=== PATIENT | male | born 1950 | race Caucasian/White ===

== ENCOUNTER → 2016-12-24 | Outpatient (CLI) | payer MEDICARE, OTHER ==
--- NOTE | 2016-12-24 14:14 | MR ---
EXAMINATION TYPE: MR angio head wo con DATE OF EXAM: 12/24/2016 2:07 PM COMPARISON: NONE HISTORY: CVA, follow up TECHNIQUE: Time of flight images focusing on the [place] were performed without contrast. FINDINGS: The right vertebral artery is not visualized. There is a origin to the right posterior cerebral artery. The left posterior communicating flavio ry is not visualized with certainty. Both ophthalmic arteries are visualized. There is no sizable ane urysm. IMPRESSION: 1. Failure to visualize the right vertebral artery. 2. Normal variant anatomy with a origin of the right posterior cerebral artery.
--- NOTE | 2017-01-01 09:27 | MR ---
"EXAMINATION TYPE: MR brain wo con DATE OF EXAM: 12/24/2016 COMPARISON: Outside MRI and CT brain July 24, 2016. HISTORY: CVA, follow up TECHNIQUE: Multiplanar, multisequence imaging of the brain and brainstem is performed without IV cont rast. FINDINGS: Diffusion weighted images demonstrate no evidence of a recent infarct or other diffusion abnormality. There is no extraaxial fluid collection or significant white matter signal abnormality. The ventricu lar system and cisternal spaces are normal in size and appearance. The brain volume is age appropria te. There is encephalomalacia with old blood product involving high posterior left frontal lobe. Curr ent exam is suboptimal as dedicated trauma protocol with T2 Star weighted imaging is not performed. A dditional foci of intraparenchymal blood product right parietal level on axial image 19 and right int ernal capsule level on axial image 18 are redemonstrated. There is new blooming artifact involving th e left lateral ventricle with temporal horn extension seen best on axial images 13 through 15 consist ent with more subacute blood product at this level as there is subtle T1 hyperintensity and T2 hyperi ntensity present. Midline structures demonstrate normal morphology. The craniocervical junction appears within normal limits. Normal vascular flow voids are present. Dominant left vertebral artery is noted. The visualiz ed sinuses are clear and the globes are intact. Deviated nasal septum to the left is redemonstrated. IMPRESSION: Redemonstration of multifocal hemosiderin deposition or old blood product with largest fo rajesh area consistent with hemorrhagic infarct or encephalomalacia high left frontal region redemonstra kate. There is suggestion of new or subacute left-sided intraventricular hemorrhage as detailed above new from prior study. Etiology uncertain. A Yellow message has been communicated to Bryan Gibson via the [employer] | Critical Result sy stem on 01/01/2017 9:24 AM, Message ID [id number]."
== END ==
LOC: RADMRIMAIN 13:38
PROVIDERS: ATTEND Nurse Practitioner Acute Care
DX: I63.9 Cerebral infarction, unspecified (principal)
CPT/HCPCS: 70544; 70551

== ENCOUNTER 2018-01-07 09:31 | Day surgery (SDC) | payer MEDICARE, OTHER ==
[2018-01-04 11:20] VITALS: BMI 32.3
[~2018-01-07 09:31] MED LIST: LACTATED RINGERS 1,000 ML IV SCH
[2018-01-07 10:03] VITALS: RESP 16; TEMP 97.6
[2018-01-07] MEDS ORDERED: PROPOFOL 10 MG/ML 20 ML VIAL IV ONE (10:56)
--- NOTE | 2018-01-07 11:18 | P.PCN ---
Date of Procedure: 01/07/18 Procedure(s) Performed: tBRIEF HISTORY: Patient is a 67-year-old, pleasant, white male, with history of chronic cirrhosis scheduled for an upper endoscopy as a part of screening for esophageal varices. PROCEDURE PERFORMED: Esophagogastroduodenoscopy with the biopsy. PREOPERATIVE DIAGNOSIS: Cirrhosis/screening for esophageal varices. IV sedation per anesthesia. PROCEDURE: After informed consent was obtained, the patient was brought into the endoscopy unit. IV sedation was administered by Anesthesia under continuous monitoring. Initially the Olympus GIF-140 video endoscope was inserted into the mouth. Esophagus intubated without any difficulty. It was gradually advanced into the stomach and duodenum and carefully examined. The bulb and the second part of the duodenum appeared normal. The scope at this time was withdrawn to the stomach, adequately insufflated with air, and upon careful examination, mucosa of the antrum, body, cardia and the fundus had severe gastritis and changes consistent with: Hypertensive gastropathy. Biopsies were done from this area. The scope was then withdrawn into the esophagus. The GE junction was located at 39 cm from the incisors. The esophagus appeared normal. There were no erosions or ulcerations seen , there was a large distal esophageal varices seen and the patient tolerated the procedure well. IMPRESSION: 1. Large distal esophageal varices with no active bleeding. 2.. Severe antral Gastritis and portal hypertensive gastropathy. RECOMMENDATIONS: The findings of this examination were discussed with the patient as well as his family. He will be started on Inderal 10 mg 3 times daily. He'll be seen in the office in 2 months.
[2018-01-07 11:35] VITALS: BP 151/79; PULSE 72
== END 2018-01-07 11:46 | disposition home or self-care (01) ==
LOC: ORWHC2ENDO 09:31
PROVIDERS: ATTEND Internal Medicine Gastroenterology
DX: K29.50 Unspecified chronic gastritis without bleeding (principal); I85.00 Esophageal varices without bleeding; K76.6 Portal hypertension; K31.89 Other diseases of stomach and duodenum; K74.60 Unspecified cirrhosis of liver; F17.290 Nicotine dependence, other tobacco product, uncomplicated; Z86.73 Personal history of transient ischemic attack (TIA), and cerebral infarction without residual deficits
CPT/HCPCS: 88305; 43239; J2704

== ENCOUNTER 2018-03-07 08:43 | Day surgery (SDC) | payer MEDICARE, OTHER ==
[2018-03-07 09:32] LABS: Mean Platelet Volume 9.3; Platelet Count 104 k/uL (150-450)
[2018-03-07 09:37] VITALS: TEMP 97.9
[2018-03-07 09:40] LABS: INR 1.3 (<1.2); Prothrombin Time 12.3 sec (9.0-12.0)
[2018-03-07] MEDS: ALBUMIN HUMAN 25% 50 ML in EMPTY BAG 1 BAG IVPB SCH ×3 (10:57→12:14)
[2018-03-07 12:16] VITALS: RESP 16
[2018-03-07 12:17] VITALS: BP 130/70; PULSE 75
--- NOTE | 2018-03-07 12:35 | US ---
Therapeutic paracentesis. DATE OF EXAM: 03/07/2018 CLINICAL HISTORY: Ascites The procedure was discussed with the patient. The risks, complications, benefits, and alternatives we re discussed and any questions were answered. Informed consent was obtained. The patient was placed s upine on the ultrasound table and prepped and draped in the usual sterile fashion. All elements of maximal barrier technique were utilized. Under ultrasound guidance, access into the right lower quadrant was obtained, via the paracentesis catheter system and direct ultrasound guidanc e. Approximately 5.2 liters of straw-colored fluid was removed. The patient was stable throughout the pr ocedure and remained stable upon discharge from Department of Radiology. IMPRESSION: Successful therapeutic paracentesis under ultrasound guidance.
== END 2018-03-07 11:30 | disposition home or self-care (01) ==
LOC: RADPROMAIN 08:43
PROVIDERS: ATTEND Internal Medicine Gastroenterology
DX: R18.8 Other ascites (principal)
CPT/HCPCS: 88108; 88305; 82565; 85049; 85610; 36415; 49083; P9047

== ENCOUNTER 2018-04-09 11:32 | Inpatient (IN) | payer MEDICARE, OTHER ==
--- NOTE | 2018-04-09 12:14 | ED ---
General Adult HPI - General Chief complaint: Weakness Stated complaint: Yellowing of eyes and skin Time Seen by Provider: 04/09/18 11:53 Source: patient, family, RN notes reviewed Mode of arrival: ambulatory Limitations: no limitations - History of Present Illness Initial comments: Patient is a pleasant 68-year-old male presenting to the emergency Department with general weakness. Onset of symptoms was several days ago. Symptoms have progressively worsened. Patient has noticed swelling of his abdomen. Patient does have known liver disease and has had some increased jaundice. Patient is fatigued. No isolated area of weakness. No confusion. - Related Data Home Medications Medication Instructions Recorded Confirmed Furosemide [Lasix] 40 mg PO DAILY 03/04/18 04/09/18 Spironolactone 100 mg PO DAILY 04/09/18 04/09/18 Allergies Allergy/AdvReac Type Severity Reaction Status Date / Time antibiotic AdvReac Rash/Hives Uncoded 04/09/18 11:43 Review of Systems ROS Statement: Those systems with pertinent positive or pertinent negative responses have been documented in the HPI. ROS Other: All systems not noted in ROS Statement are negative. Constitutional: Denies: fever Eyes: Denies: eye pain, vision change ENT: Denies: ear pain Respiratory: Denies: cough Cardiovascular: Denies: chest pain Endocrine: Reports: fatigue Gastrointestinal: Denies: vomiting Genitourinary: Denies: dysuria Musculoskeletal: Denies: back pain Skin: Reports: other (Jaundice discoloration) Neurological: Denies: confusion Past Medical History Past Medical History: Liver Disease Additional Past Medical History / Comment(s): bleed in brain in 2016 affecting right side recovered well after rehab, Cirrosis of liver (non alcoholic) History of Any Multi-Drug Resistant Organisms: C-DIFF Date of last positivie culture/infection: 2014 MDRO Source:: Colon Past Surgical History: No Surgical Hx Reported Additional Past Surgical History / Comment(s): Colonoscopy Past Anesthesia/Blood Transfusion Reactions: No Reported Reaction Past Psychological History: No Psychological Hx Reported Smoking Status: Current some day smoker Past Alcohol Use History: None Reported Past Drug Use History: None Reported - Past Family History Mother Family Medical History: Unable to Obtain Additional Family Medical History / Comment(s): Adopted General Exam Limitations: no limitations General appearance: alert, in no apparent distress Head exam: Present: atraumatic Eye exam: Present: scleral icterus ENT exam: Present: normal oropharynx Neck exam: Present: normal inspection Respiratory exam: Present: normal lung sounds bilaterally Cardiovascular Exam: Present: regular rate, normal rhythm GI/Abdominal exam: Present: distended, organomegaly (Hepatomegaly) Extremities exam: Present: pedal edema. Absent: calf tenderness Neurological exam: Present: alert Psychiatric exam: Present: normal affect, normal mood Skin exam: Present: other (Jaundiced appearance) Course Vital Signs 04/09/18 04/09/18 11:38 13:34 Temperature 98.1 F Pulse Rate 96 95 Respiratory 18 18 Rate Blood Pressure 124/70 130/77 O2 Sat by Pulse 96 96 Oximetry EKG Findings - EKG Comments: EKG Findings:: Normal sinus rhythm 96. IL 148. QRS 90. QT 370. QTc 467. Left axis. Normal QRS. No acute ST change. Medical Decision Making - Medical Decision Making Patient reevaluated. Patient and family updated. Case was discussed in detail with Dr. Schmidt, covering for Dr. whiatker, who will admit for Dr. Rowan. Gastroesophageal neurology will be consulted. Patient was previously seen Dr. Simpson. - Lab Data Result diagrams: 04/09/18 12:12 04/09/18 12:12 Lab Results 04/09/18 04/09/18 04/09/18 Range/Units 12:12 12:12 12:12 WBC 6.9 (3.8-10.6) k/uL RBC 4.36 (4.30-5.90) m/uL Hgb 14.2 (13.0-17.5) gm/dL Hct 44.6 (39.0-53.0) % MCV 102.3 H (80.0-100.0) fL MCH 32.5 (25.0-35.0) pg MCHC 31.8 (31.0-37.0) g/dL RDW 17.0 H (11.5-15.5) % Plt Count 110 L (150-450) k/uL Neutrophils % 76 % Lymphocytes % 13 % Monocytes % 7 % Eosinophils % 1 % Basophils % 0 % Neutrophils # 5.3 (1.3-7.7) k/uL Lymphocytes # 0.9 L (1.0-4.8) k/uL Monocytes # 0.5 (0-1.0) k/uL Eosinophils # 0.1 (0-0.7) k/uL Basophils # 0.0 (0-0.2) k/uL Anisocytosis Slight Macrocytosis Moderate PT (9.0-12.0) sec INR (<1.2) APTT (22.0-30.0) sec Sodium 133 L (137-145) mmol/L Potassium 5.6 H (3.5-5.1) mmol/L Chloride 98 (98-107) mmol/L Carbon Dioxide 25 (22-30) mmol/L Anion Gap 10 mmol/L BUN 29 H (9-20) mg/dL Creatinine 0.92 (0.66-1.25) mg/dL Est GFR (CKD-EPI)AfAm >90 (>60 ml/min/1.73 sqM) Est GFR (CKD-EPI)NonAf 86 (>60 ml/min/1.73 sqM) Glucose 142 H (74-99) mg/dL Plasma Lactic Acid [place] (0.7-2.0) mmol/L Calcium 8.8 (8.4-10.2) mg/dL Phosphorus 3.6 (2.5-4.5) mg/dL Total Bilirubin 13.2 H (0.2-1.3) mg/dL AST 178 H (17-59) U/L ALT 61 (21-72) U/L Alkaline Phosphatase 322 H (38-126) U/L Ammonia (<30) umol/L Total Creatine Kinase 37 L (55-170) U/L CK-MB (CK-2) 0.7 (0.0-2.4) ng/mL CK-MB (CK-2) Rel Index 1.9 Troponin I <0.012 (0.000-0.034) ng/mL NT-Pro-B Natriuret Pep pg/mL Total Protein 7.8 (6.3-8.2) g/dL Albumin 2.8 L (3.5-5.0) g/dL TSH 2.590 (0.465-4.680) mIU/L Urine Color Urine Appearance (Clear) Urine pH (5.0-8.0) Ur Specific [place] (1.001-1.035) Urine Protein (Negative) Urine Glucose (UA) (Negative) Urine Ketones (Negative) Urine Blood (Negative) Urine Nitrite (Negative) Urine Bilirubin (Negative) Urine Urobilinogen (<2.0) mg/dL Ur Leukocyte Esterase (Negative) 04/09/18 04/09/18 04/09/18 Range/Units 12:12 12:12 12:12 WBC (3.8-10.6) k/uL RBC (4.30-5.90) m/uL Hgb (13.0-17.5) gm/dL Hct (39.0-53.0) % MCV (80.0-100.0) fL MCH (25.0-35.0) pg MCHC (31.0-37.0) g/dL RDW (11.5-15.5) % Plt Count (150-450) k/uL Neutrophils % % Lymphocytes % % Monocytes % % Eosinophils % % Basophils % % Neutrophils # (1.3-7.7) k/uL Lymphocytes # (1.0-4.8) k/uL Monocytes # (0-1.0) k/uL Eosinophils # (0-0.7) k/uL Basophils # (0-0.2) k/uL Anisocytosis Macrocytosis PT 15.1 H (9.0-12.0) sec INR 1.6 H (<1.2) APTT 29.2 (22.0-30.0) sec Sodium (137-145) mmol/L Potassium (3.5-5.1) mmol/L Chloride (98-107) mmol/L Carbon Dioxide (22-30) mmol/L Anion Gap mmol/L BUN (9-20) mg/dL Creatinine (0.66-1.25) mg/dL Est GFR (CKD-EPI)AfAm (>60 ml/min/1.73 sqM) Est GFR (CKD-EPI)NonAf (>60 ml/min/1.73 sqM) Glucose (74-99) mg/dL Plasma Lactic Acid [place] 2.8 H* (0.7-2.0) mmol/L Calcium (8.4-10.2) mg/dL Phosphorus (2.5-4.5) mg/dL Total Bilirubin (0.2-1.3) mg/dL AST (17-59) U/L ALT (21-72) U/L Alkaline Phosphatase (38-126) U/L Ammonia 28 (<30) umol/L Total Creatine Kinase (55-170) U/L CK-MB (CK-2) (0.0-2.4) ng/mL CK-MB (CK-2) Rel Index Troponin I (0.000-0.034) ng/mL NT-Pro-B Natriuret Pep 429 pg/mL Total Protein (6.3-8.2) g/dL Albumin (3.5-5.0) g/dL TSH (0.465-4.680) mIU/L Urine Color Urine Appearance (Clear) Urine pH (5.0-8.0) Ur Specific [place] (1.001-1.035) Urine Protein (Negative) Urine Glucose (UA) (Negative) Urine Ketones (Negative) Urine Blood (Negative) Urine Nitrite (Negative) Urine Bilirubin (Negative) Urine Urobilinogen (<2.0) mg/dL Ur Leukocyte Esterase (Negative) 04/09/18 Range/Units 13:20 WBC (3.8-10.6) k/uL RBC (4.30-5.90) m/uL Hgb (13.0-17.5) gm/dL Hct (39.0-53.0) % MCV (80.0-100.0) fL MCH (25.0-35.0) pg MCHC (31.0-37.0) g/dL RDW (11.5-15.5) % Plt Count (150-450) k/uL Neutrophils % % Lymphocytes % % Monocytes % % Eosinophils % % Basophils % % Neutrophils # (1.3-7.7) k/uL Lymphocytes # (1.0-4.8) k/uL Monocytes # (0-1.0) k/uL Eosinophils # (0-0.7) k/uL Basophils # (0-0.2) k/uL Anisocytosis Macrocytosis PT (9.0-12.0) sec INR (<1.2) APTT (22.0-30.0) sec Sodium (137-145) mmol/L Potassium (3.5-5.1) mmol/L Chloride (98-107) mmol/L Carbon Dioxide (22-30) mmol/L Anion Gap mmol/L BUN (9-20) mg/dL Creatinine (0.66-1.25) mg/dL Est GFR (CKD-EPI)AfAm (>60 ml/min/1.73 sqM) Est GFR (CKD-EPI)NonAf (>60 ml/min/1.73 sqM) Glucose (74-99) mg/dL Plasma Lactic Acid [place] (0.7-2.0) mmol/L Calcium (8.4-10.2) mg/dL Phosphorus (2.5-4.5) mg/dL Total Bilirubin (0.2-1.3) mg/dL AST (17-59) U/L ALT (21-72) U/L Alkaline Phosphatase (38-126) U/L Ammonia (<30) umol/L Total Creatine Kinase (55-170) U/L CK-MB (CK-2) (0.0-2.4) ng/mL CK-MB (CK-2) Rel Index Troponin I (0.000-0.034) ng/mL NT-Pro-B Natriuret Pep pg/mL Total Protein (6.3-8.2) g/dL Albumin (3.5-5.0) g/dL TSH (0.465-4.680) mIU/L Urine Color Dark Yellow Urine Appearance Clear (Clear) Urine pH 5.5 (5.0-8.0) Ur Specific [place] 1.007 (1.001-1.035) Urine Protein Negative (Negative) Urine Glucose (UA) Negative (Negative) Urine Ketones Negative (Negative) Urine Blood Negative (Negative) Urine Nitrite Negative (Negative) Urine Bilirubin 1+ H (Negative) Urine Urobilinogen <2.0 (<2.0) mg/dL Ur Leukocyte Esterase Negative (Negative) - Radiology Data Radiology results: image reviewed (Chest x-ray shows no acute process) Disposition Clinical Impression: Liver failure, Ascites Disposition: ADMITTED IP TO THIS HOSP Is patient prescribed a controlled substance at d/c from ED?: No Referrals: Travon Rowan MD [Primary Care Provider] - 1-2 days Decision Time: 15:04
[2018-04-09 12:26] LABS: Anisocytosis Slight; Basophils % (A) 0 %; Eosinophils # (A) 0.1 k/uL (0-0.7); Eosinophils % (A) 1 %; HCT 44.6 % (39.0-53.0); HGB 14.2 gm/dL (13.0-17.5); Lymphocytes # (A) 0.9 k/uL (1.0-4.8); Lymphocytes % (A) 13 %; MCH 32.5 pg (25.0-35.0); MCHC 31.8 g/dL (31.0-37.0); MCV 102.3 fL (80.0-100.0); Macrocytosis Moderate; Mean Platelet Volume 8.4; Monocytes # (A) 0.5 k/uL (0-1.0); Monocytes % (A) 7 %; Neutrophils # (A) 5.3 k/uL (1.3-7.7); Neutrophils % (A) 76 %; Platelet Count 110 k/uL (150-450); RBC 4.36 m/uL (4.30-5.90); WBC 6.9 k/uL (3.8-10.6)
[2018-04-09 12:36] LABS: ALT 61 U/L (21-72); AST 178 U/L (17-59); Albumin 2.8 g/dL (3.5-5.0); Alkaline Phosphatase 322 U/L (38-126); Anion Gap 10 mmol/L; Blood Urea Nitrogen 29 mg/dL (9-20); Calcium 8.8 mg/dL (8.4-10.2); Carbon Dioxide 25 mmol/L (22-30); Chloride 98 mmol/L (98-107); Glucose 142 mg/dL (74-99); INR 1.6 (<1.2); Lactic Acid, Venous 2.8 mmol/L (0.7-2.0); Partial Thromboplastin Time 29.2 sec (22.0-30.0); Phosphorus 3.6 mg/dL (2.5-4.5); Potassium 5.6 mmol/L (3.5-5.1); Prothrombin Time 15.1 sec (9.0-12.0); Sodium 133 mmol/L (137-145); Total Bilirubin 13.2 mg/dL (0.2-1.3); Total Protein 7.8 g/dL (6.3-8.2)
--- NOTE | 2018-04-09 12:38 | XR ---
EXAMINATION TYPE: XR chest 2V DATE OF EXAM: 04/09/2018 HISTORY: Weakness. REFERENCE: NONE. FINDINGS: There is apparent elevation of the right hemidiaphragm. There is some thickening of the min or fissure on the right. The lungs are clear. Pleural spaces appear clear. The heart is not enlarged. IMPRESSION: NO ACUTE INTRATHORACIC ABNORMALITY.
[2018-04-09 13:03] LABS: Creatine Kinase 37 U/L (55-170)
[2018-04-09 13:14] LABS: Creatine Kinase MB 0.7 ng/mL (0.0-2.4); Troponin I <0.012 ng/mL (0.000-0.034)
[2018-04-09 13:37] LABS: Appearance,Urine Clear (Clear); Bilirubin,Urine 1+ (Negative); Blood,Urine Negative (Negative); Color,Urine Dark Yellow; Glucose,Urine (UA) Negative (Negative); Ketones,Urine Negative (Negative); Leukocyte Esterase,Urine Negative (Negative); Nitrite,Urine Negative (Negative); PH, Urine 5.5 (5.0-8.0); Protein,Urine Negative (Negative); Specific Gravity,Urine 1.007 (1.001-1.035); Urobilinogen,Urine <2.0 mg/dL (<2.0)
[2018-04-09] MEDS ORDERED: NALOXONE 0.4 MG/ML 1 ML VIAL IV PRN (15:04)
[2018-04-09] MEDS: SODIUM CHLORIDE 0.9% 1,000 ML IV SCH (15:29)
--- NOTE | 2018-04-09 16:33 | P.HPIM ---
History of Present Illness 68-year-old the male came in with generalized weakness as well as discoloration of the skin. Patient the found to have obstructive jaundice. Patient does have history of cirrhosis was extensively evaluated as an outpatient. I do not have any significant labs available. Patient is unsure whether hepatitis panel was obtained patient the etiology of cirrhosis unknown patient does not appear to be sick alcoholic. The did drink alcohol in the past occasionally never an alcoholic. Patient was told that a nonalcoholic stridor hepatitis like to cirrhosis. Patient's ammonia level essentially within normal limits bilirubin is 13 with yellowish discoloration of the skin patient denied any itching. Patient had elevated lactic acid secondary to cirrhosis. Patient's potassium is elevated secondary to aldactone. Patient denied any abdominal pain nausea vomiting diarrhea. Review of Systems REVIEW OF SYSTEMS: CONSTITUTIONAL: No fever, no malaise, no fatigue. HEENT: No recent visual problems or hearing problems. Denied any sore throat. CARDIOVASCULAR: No chest pain, orthopnea, PND, no palpitations, no syncope. PULMONARY: No shortness of breath, no cough, no hemoptysis. GASTROINTESTINAL: As mentioned in HPI NEUROLOGICAL: No headaches, no weakness, no numbness. HEMATOLOGICAL: Denies any bleeding or petechiae. GENITOURINARY: Denies any burning micturition, frequency, or urgency. MUSCULOSKELETAL/RHEUMATOLOGICAL: Denies any joint pain, swelling, or any muscle pain. ENDOCRINE: Denies any polyuria or polydipsia. The rest of the 14-point review of systems is negative. Past Medical History Past Medical History: Liver Disease Additional Past Medical History / Comment(s): bleed in brain in 2016 affecting right side recovered well after rehab, Cirrosis of liver (non alcoholic) History of Any Multi-Drug Resistant Organisms: C-DIFF Date of last positivie culture/infection: 2014 MDRO Source:: Colon Past Surgical History: No Surgical Hx Reported Additional Past Surgical History / Comment(s): Colonoscopy Past Anesthesia/Blood Transfusion Reactions: No Reported Reaction Past Psychological History: No Psychological Hx Reported Smoking Status: Current some day smoker Past Alcohol Use History: None Reported Past Drug Use History: None Reported - Past Family History Mother Family Medical History: Unable to Obtain Additional Family Medical History / Comment(s): Adopted Medications and Allergies Home Medications Medication Instructions Recorded Confirmed Type Furosemide [Lasix] 40 mg PO DAILY 03/04/18 04/09/18 History Spironolactone 100 mg PO DAILY 04/09/18 04/09/18 History Allergies Allergy/AdvReac Type Severity Reaction Status Date / Time antibiotic AdvReac Rash/Hives Uncoded 04/09/18 11:43 Physical Exam Vitals: Vital Signs Temp Pulse Resp BP Pulse Ox 04/09/18 15:31 93 18 118/73 95 04/09/18 13:34 95 18 130/77 96 04/09/18 11:38 98.1 F 96 18 124/70 96 Intake and Output 04/09/18 04/09/18 04/09/18 06:59 14:59 22:59 Other: Weight 83.007 kg PHYSICAL EXAMINATION: GENERAL: The patient is alert and oriented x3, not in any acute distress. Well developed, well nourished. On looking HEENT: Pupils are round and equally reacting to light. EOMI. she does have scleral icterus. No conjunctival pallor. Normocephalic, atraumatic. No pharyngeal erythema. No thyromegaly. CARDIOVASCULAR: S1 and S2 present. No murmurs, rubs, or gallops. PULMONARY: Chest is clear to auscultation, no wheezing or crackles. ABDOMEN: Abdominal is distended with ascites shifting dullness no fluid thrill. MUSCULOSKELETAL: No joint swelling or deformity. EXTREMITIES: No cyanosis, clubbing, or pedal edema. NEUROLOGICAL: Gross neurological examination did not reveal any focal deficits. SKIN: No rashes. Results CBC & Chem 7: 04/09/18 12:12 04/09/18 12:12 Labs: Abnormal Lab Results - Last 24 Hours (Table) 04/09/18 04/09/18 04/09/18 Range/Units 12:12 12:12 12:12 MCV 102.3 H (80.0-100.0) fL RDW 17.0 H (11.5-15.5) % Plt Count 110 L (150-450) k/uL Lymphocytes # 0.9 L (1.0-4.8) k/uL PT (9.0-12.0) sec INR (<1.2) Sodium 133 L (137-145) mmol/L Potassium 5.6 H (3.5-5.1) mmol/L BUN 29 H (9-20) mg/dL Glucose 142 H (74-99) mg/dL Plasma Lactic Acid [place] (0.7-2.0) mmol/L Total Bilirubin 13.2 H (0.2-1.3) mg/dL AST 178 H (17-59) U/L Alkaline Phosphatase 322 H (38-126) U/L Total Creatine Kinase 37 L (55-170) U/L Albumin 2.8 L (3.5-5.0) g/dL Urine Bilirubin (Negative) 04/09/18 04/09/18 04/09/18 Range/Units 12:12 12:12 13:20 MCV (80.0-100.0) fL RDW (11.5-15.5) % Plt Count (150-450) k/uL Lymphocytes # (1.0-4.8) k/uL PT 15.1 H (9.0-12.0) sec INR 1.6 H (<1.2) Sodium (137-145) mmol/L Potassium (3.5-5.1) mmol/L BUN (9-20) mg/dL Glucose (74-99) mg/dL Plasma Lactic Acid [place] 2.8 H* (0.7-2.0) mmol/L Total Bilirubin (0.2-1.3) mg/dL AST (17-59) U/L Alkaline Phosphatase (38-126) U/L Total Creatine Kinase (55-170) U/L Albumin (3.5-5.0) g/dL Urine Bilirubin 1+ H (Negative) 04/09/18 Range/Units 15:56 MCV (80.0-100.0) fL RDW (11.5-15.5) % Plt Count (150-450) k/uL Lymphocytes # (1.0-4.8) k/uL PT (9.0-12.0) sec INR (<1.2) Sodium (137-145) mmol/L Potassium (3.5-5.1) mmol/L BUN (9-20) mg/dL Glucose (74-99) mg/dL Plasma Lactic Acid [place] 2.9 H* (0.7-2.0) mmol/L Total Bilirubin (0.2-1.3) mg/dL AST (17-59) U/L Alkaline Phosphatase (38-126) U/L Total Creatine Kinase (55-170) U/L Albumin (3.5-5.0) g/dL Urine Bilirubin (Negative) Assessment and Plan Plan: -Abdominal distention: Secondary to cirrhosis ascites, patient will be started on IV Lasix in spite of lactic acidosis which is secondary to cirrhosis we'll repeat lactic acid tomorrow hold off aldactone -Lactic acidosis secondary to liver failure -Direct hyperbilirubinemia: Secondary to cirrhosis will use ursodeoxycholic acid. -Cirrhosis etiology is unknown probability of nonalcoholic steato- hepatitis with some acute hepatitis -Hyperkalemia secondary to potassium sparing diuretic which is being held -Hyponatremia hypervolemic hyponatremia expected to improve with Lasix -Elevated MCV secondary to liver disease.
[2018-04-09] MEDS: URSODIOL 300 MG CAP PO SCH (17:57)
[2018-04-09] MEDS: FUROSEMIDE 10 MG/ML 4 ML VIAL IV SCH (17:57)
--- NOTE | 2018-04-09 20:29 | P.CONS ---
History of Present Illness - Reason for Consult Consult date: 04/09/18 Ascites, elevated bilirubin Requesting physician: Uri Schmidt - Chief Complaint Weakness, abdominal distention - History of Present Illness The patient is a 68-year-old male with a known history of decompensated cirrhosis who presented to the hospital with complaints of weakness, increased abdominal distention and jaundice. Per the patient's he was diagnosed with cirrhosis in 2014. 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 Initially the patient was on diuretic therapy as needed for a ascites however he was started on daily Lasix 40 mg and Aldactone 100 mg earlier in the year. He he has required paracentesis 1 time in the past. He reports compliance with a 1500 mg sodium diet. He denies any excessive alcohol abuse. He denies any fevers chills or confusion. He is not on any medications for encephalopathy and denies any signs or symptoms of encephalopathy. He had an EGD on 01/07/18 which was significant for gastritis however per the patient no varices were noted at that time. He denies any recent medication changes, sick contacts, GI bleeding or other illness. He reports that earlier in the week when he was seen by his daughter there was no evidence of yellowing of his skin at that time. Currently he is lying in bed attenuating to report abdominal discomfort from the distention but no actual pain in his abdomen or tenderness to palpation. Review of Systems REVIEW OF SYSTEMS: CARDIOPULMONARY: Denies chest pain but does note minimal shortness of breath. GENITOURINARY: No dysuria or hematuria however does note some darkening of his urine. MUSCULOSKELETAL: The patient has felt weak and fatigued SKIN: Denies any new rashes or lesions or pallor, however jaundice of his skin has been noted. PSYCHIATRIC: Denies any depression or anxiety. NEUROLOGY: Denies headache, denies any new focal deficits. EARS: No tinnitus, discharge or new hearing loss. NOSE: No discharge or congestion. EYES: No pain in eyes or change in vision. CONSTITUTIONAL: No recent weight loss. No fever, chills, night sweats. 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; C-Diff x1 2015, multiple kidney stones; low platelets History of Any Multi-Drug Resistant Organisms: C-DIFF Year Discovered:: 2014 MDRO Source:: Colon Past Surgical History: No Surgical Hx Reported Additional Past Surgical History / Comment(s): Colonoscopy; paracentesis x1 February 2018; ERCP; 2017 platelet transfusion Past Anesthesia/Blood Transfusion Reactions: No Reported Reaction Past Psychological History: No Psychological Hx Reported Smoking Status: Current every day smoker Past Alcohol Use History: None Reported Additional Past Alcohol Use History / Comment(s): smokes 2 cigars a day for about 15-20 years. Has not drank alcohol since beginning of February 2018, occasional alcohol prior to that. Past Drug Use History: None Reported - Past Family History Mother Family Medical History: Unable to Obtain Additional Family Medical History / Comment(s): Adopted. Medications and Allergies Home Medications Medication Instructions Recorded Confirmed Type Furosemide [Lasix] 40 mg PO DAILY 03/04/18 04/09/18 History Spironolactone 100 mg PO DAILY 04/09/18 04/09/18 History Allergies Allergy/AdvReac Type Severity Reaction Status Date / Time antibiotic AdvReac Rash/Hives Uncoded 04/09/18 11:43 Physical Exam Vitals: Vital Signs Temp Pulse Resp BP Pulse Ox 04/09/18 16:33 98 F 93 18 147/81 96 04/09/18 15:31 93 18 118/73 95 04/09/18 13:34 95 18 130/77 96 04/09/18 11:38 98.1 F 96 18 124/70 96 Intake and Output 04/09/18 04/09/18 04/09/18 06:59 14:59 22:59 Other: Weight 83.007 kg 84.5 kg On physical examination, patient appears comfortable in no apparent distress. HEAD: Normocephalic, atraumatic. EYES: Positive for scleral icterus. No conjunctival injection. MOUTH: No lesions, tongue midline. NECK: Trachea midline, no gross abnormalities. CHEST: Clear to auscultation with no wheezing or rhonchi appreciated. HEART: Regular rate and rhythm. ABDOMEN: Soft, distended with positive fluid wave. Bowel sounds are positive. No organomegaly. No guarding or rigidity. EXTREMITIES: Minimal bilateral pedal edema. SKIN: No rashes, severe for jaundice. NEUROLOGIC: Alert and oriented x3. No focal deficits. No asterixis noted. Results CBC & Chem 7: 04/09/18 12:12 04/09/18 12:12 Labs: Abnormal Lab Results - Last 24 Hours (Table) 04/09/18 04/09/18 04/09/18 Range/Units 12:12 12:12 12:12 MCV 102.3 H (80.0-100.0) fL RDW 17.0 H (11.5-15.5) % Plt Count 110 L (150-450) k/uL Lymphocytes # 0.9 L (1.0-4.8) k/uL PT (9.0-12.0) sec INR (<1.2) Sodium 133 L (137-145) mmol/L Potassium 5.6 H (3.5-5.1) mmol/L BUN 29 H (9-20) mg/dL Glucose 142 H (74-99) mg/dL Plasma Lactic Acid Kevon (0.7-2.0) mmol/L Total Bilirubin 13.2 H (0.2-1.3) mg/dL AST 178 H (17-59) U/L Alkaline Phosphatase 322 H (38-126) U/L Total Creatine Kinase 37 L (55-170) U/L Albumin 2.8 L (3.5-5.0) g/dL Urine Bilirubin (Negative) 04/09/18 04/09/18 04/09/18 Range/Units 12:12 12:12 13:20 MCV (80.0-100.0) fL RDW (11.5-15.5) % Plt Count (150-450) k/uL Lymphocytes # (1.0-4.8) k/uL PT 15.1 H (9.0-12.0) sec INR 1.6 H (<1.2) Sodium (137-145) mmol/L Potassium (3.5-5.1) mmol/L BUN (9-20) mg/dL Glucose (74-99) mg/dL Plasma Lactic Acid Kevon 2.8 H* (0.7-2.0) mmol/L Total Bilirubin (0.2-1.3) mg/dL AST (17-59) U/L Alkaline Phosphatase (38-126) U/L Total Creatine Kinase (55-170) U/L Albumin (3.5-5.0) g/dL Urine Bilirubin 1+ H (Negative) 04/09/18 Range/Units 15:56 MCV (80.0-100.0) fL RDW (11.5-15.5) % Plt Count (150-450) k/uL Lymphocytes # (1.0-4.8) k/uL PT (9.0-12.0) sec INR (<1.2) Sodium (137-145) mmol/L Potassium (3.5-5.1) mmol/L BUN (9-20) mg/dL Glucose (74-99) mg/dL Plasma Lactic Acid Kevon 2.9 H* (0.7-2.0) mmol/L Total Bilirubin (0.2-1.3) mg/dL AST (17-59) U/L Alkaline Phosphatase (38-126) U/L Total Creatine Kinase (55-170) U/L Albumin (3.5-5.0) g/dL Urine Bilirubin (Negative) Chest x-ray: report reviewed (X-ray chest significant for no acute intrathoracic abnormality.) Assessment and Plan (1) Liver failure Narrative/Plan: Acute on chronic liver failure patient with known cirrhosis who presents with worsening of ascites and hyperbilirubinemia. No signs or symptoms to suggest GI bleed, infection, medication change, noncompliance with diet or other etiology to explain acute worsening of symptoms. Patient will need paracentesis with fluid studies and will likely benefit from imaging after paracentesis to rule out underlying malignancy as etiology. Current Visit: Yes Status: Acute Code(s): K72.90 - HEPATIC FAILURE, UNSPECIFIED WITHOUT COMA SNOMED Code(s): 43298467 (2) Hyperbilirubinemia Narrative/Plan: Secondary to above. Current Visit: Yes Status: Acute Code(s): E80.6 - OTHER DISORDERS OF BILIRUBIN METABOLISM SNOMED Code(s): 27844230 (3) Ascites Narrative/Plan: Patient is on Lasix and spironolactone at home and has required 1 paracentesis in the past. Presenting with worsening of the ascites of unknown etiology. Current Visit: Yes Status: Acute Code(s): R18.8 - OTHER ASCITES SNOMED Code(s): 602227660 Plan: Supportive care Continue diuresis with Lasix Will order a paracentesis with fluid studies AFP pending Patient would likely benefit from CT abdomen after paracentesis for better evaluation of liver parenchyma to rule out possible mass given acute decompensation 2 g sodium restricted diet Follow-up in 2 weeks with gastroenterology, given the patient's current meld he would likely benefit from referral to [facility] for liver transplant evaluation
[2018-04-10] MEDS: FUROSEMIDE 10 MG/ML 4 ML VIAL IV SCH ×2 (06:45→17:28)
[2018-04-10 08:28] LABS: ALT 57 U/L (21-72); AST 164 U/L (17-59); Albumin 2.6 g/dL (3.5-5.0); Alkaline Phosphatase 308 U/L (38-126); Anion Gap 9 mmol/L; Blood Urea Nitrogen 30 mg/dL (9-20); Calcium 8.7 mg/dL (8.4-10.2); Carbon Dioxide 28 mmol/L (22-30); Chloride 98 mmol/L (98-107); Glucose 87 mg/dL (74-99); Potassium 4.5 mmol/L (3.5-5.1); Sodium 135 mmol/L (137-145); Total Bilirubin 13.4 mg/dL (0.2-1.3); Total Protein 7.4 g/dL (6.3-8.2)
[2018-04-10 08:34] LABS: INR 1.5 (<1.2); Prothrombin Time 14.2 sec (9.0-12.0)
[2018-04-10] MEDS: URSODIOL 300 MG CAP PO SCH ×3 (09:24→17:28)
[2018-04-10] MEDS: PANTOPRAZOLE 40 MG/10 ML VIAL IV SCH (10:21)
[2018-04-10] MEDS ORDERED: ONDANSETRON 4 MG/2 ML VIAL IVP PRN (12:02)
[2018-04-10] MEDS: traMADol 50 MG TAB PO PRN ×2 (12:12→21:35)
[2018-04-10] MEDS ORDERED: PHYTONADIONE ORAL 5 MG/5 ML ORAL.SYRG PO STA (13:18)
--- NOTE | 2018-04-10 14:20 | P.PN ---
Subjective 68-year-old admitted the for [facility], cirrhosis nonalcoholic steato hepatitis is on Lasix improved lactic acid improved potassium level patient is urinating well. Patient will undergo diagnostic and therapeutic paracentesis patient will need referral to liver transplant list. INR is elevated secondary to liver disease his in's 1.5 will order vitamin K Constitutional: Denied any fatigue denied any fever. Cardio vascular: denied any chest pain, palpitations Gastrointestinal denied any nausea vomiting Pulmonary: Denied any shortness of breath cough Neurologic denied any new focal deficits Objective - Vital Signs Vital signs: Vital Signs Temp 98.1 F 04/10/18 06:30 Pulse 95 04/10/18 06:30 Resp 16 04/10/18 06:30 BP 95/52 04/10/18 06:30 Pulse Ox 93 L 04/10/18 08:40 Intake & Output 04/09/18 04/10/18 04/10/18 18:59 06:59 18:59 Weight 84.5 kg Other: Voiding Method Toilet Urinal # Voids 4 - Exam PHYSICAL EXAMINATION: GENERAL: The patient is alert and oriented x3, not in any acute distress. Well developed, well nourished. On looking HEENT: Pupils are round and equally reacting to light. EOMI. she does have scleral icterus. No conjunctival pallor. Normocephalic, atraumatic. No pharyngeal erythema. No thyromegaly. CARDIOVASCULAR: S1 and S2 present. No murmurs, rubs, or gallops. PULMONARY: Chest is clear to auscultation, no wheezing or crackles. ABDOMEN: Abdominal is distended with ascites shifting dullness no fluid thrill. MUSCULOSKELETAL: No joint swelling or deformity. EXTREMITIES: No cyanosis, clubbing, or pedal edema. NEUROLOGICAL: Gross neurological examination did not reveal any focal deficits. SKIN: No rashes. - Labs CBC & Chem 7: 04/09/18 12:12 04/10/18 07:55 Labs: Abnormal Lab Results - Last 24 Hours (Table) 04/09/18 04/10/18 04/10/18 Range/Units 15:56 07:55 07:55 PT 14.2 H (9.0-12.0) sec INR 1.5 H (<1.2) Sodium 135 L (137-145) mmol/L BUN 30 H (9-20) mg/dL Plasma Lactic Acid Kevon 2.9 H* (0.7-2.0) mmol/L Total Bilirubin 13.4 H (0.2-1.3) mg/dL AST 164 H (17-59) U/L Alkaline Phosphatase 308 H (38-126) U/L Albumin 2.6 L (3.5-5.0) g/dL Assessment and Plan Plan: -Abdominal distention: Secondary to cirrhosis ascites, patient is on IV Lasix.lactic acidosis which is secondary to cirrhosis lactic has it has come down potassium has come down continue with the holding off on potassium sparing diuretics continue with IV Lasix. Patient will undergo therapeutic and diagnostic paracentesis tomorrow -Lactic acidosis secondary to liver failure -Direct hyperbilirubinemia: Secondary to cirrhosis will use ursodeoxycholic acid. -Cirrhosis etiology is unknown probability of nonalcoholic steato- hepatitis with some acute hepatitis -Hyperkalemia secondary to potassium sparing diuretic which is being held -Hyponatremia hypervolemic hyponatremia improved with Lasix -Elevated MCV secondary to liver disease. -Coagulopathy secondary to liver disease
[2018-04-10] MEDS: SODIUM CHLORIDE 0.9% 1,000 ML IV SCH (15:34)
[2018-04-11] MEDS: FUROSEMIDE 10 MG/ML 4 ML VIAL IV SCH (05:49)
[2018-04-11 08:18] LABS: INR 1.4 (<1.2); Prothrombin Time 13.3 sec (9.0-12.0)
[2018-04-11 08:28] LABS: Albumin 2.6 g/dL (3.5-5.0); Calcium 8.7 mg/dL (8.4-10.2); Potassium 4.2 mmol/L (3.5-5.1); Total Protein 7.3 g/dL (6.3-8.2)
[2018-04-11] MEDS: PANTOPRAZOLE 40 MG/10 ML VIAL IV SCH (09:45)
[2018-04-11] MEDS: URSODIOL 300 MG CAP PO SCH ×2 (09:46→12:07)
--- NOTE | 2018-04-11 13:08 | US ---
EXAMINATION TYPE: US abdomen limited DATE OF EXAM: 04/11/2018 COMPARISON: US CLINICAL HISTORY: assess for fluid. Ascites is seen in all four abdominal quadrants with larger pockets RLQ = 7.4cm A/P and LLQ pocket si ze = 5.7cm A/P IMPRESSION: Ascites as noted.
--- NOTE | 2018-04-11 13:26 | US ---
EXAMINATION TYPE: US paracentesis abd w/image DATE OF EXAM: 04/11/2018 CLINICAL HISTORY: Ascites The procedure was discussed with the patient. The risks, complications, benefits, and alternatives we re discussed and any questions were answered. Informed consent was obtained. The patient was placed s upine on the ultrasound table and prepped and draped in the usual sterile fashion. All elements of maximal barrier technique were utilized. Under ultrasound guidance, access into the right lower quadrant was obtained, via the paracentesis catheter system and direct ultrasound guidanc e. Approximately 5.3 liters of serous fluid was removed. Sample sent to pathology for analysis. The ellyn ent was stable throughout the procedure and remained stable upon discharge from Department of Radiolo gy. IMPRESSION: Successful therapeutic and diagnostic paracentesis under ultrasound guidance.
[2018-04-11 14:19] LABS: Hepatitis A Antibody IgM Non-Reactive (Non-Reactive); Hepatitis B Core IgM Non-Reactive (Non-Reactive)
[2018-04-11] MEDS: ALBUMIN HUMAN 25% 50 ML in EMPTY BAG 1 BAG IVPB SCH ×2 (14:37→15:38)
[2018-04-11 15:01] LABS: Appearance,BF Clear; Color,BF Yellow; Nucleated Cells, Body Fluid 32 /uL; RBC, Body Fluid 485 /uL
[2018-04-11 15:06] LABS: Mononuclear WBC,Body Fluid 94 %; Polynuclear WBC,Body Fluid 6 %; Total Cells Counted,Body Fluid 100
[2018-04-11] MEDS: SODIUM CHLORIDE 0.9% 1,000 ML IV SCH (15:39)
[2018-04-11 16:05] VITALS: BP 104/62; PULSE 91; RESP 18; TEMP 97.8
--- NOTE | 2018-04-13 10:21 | P.DS ---
Providers Date of admission: 04/09/18 15:04 Expected date of discharge: 04/11/18 Attending physician: Uri Schmidt Consults: 04/09/18 15:05 Consult Physician Urgent Consulting Provider: Margaret Pride Consult Reason/Comments: Liver failure and ascites Do you want consulting provider notified?: Yes Primary care physician: [facility] Course: Final Diagnoses: -Abdominal distention: Secondary to cirrhosis ascites,s/p therapeutic and diagnostic paracentesis -Lactic acidosis secondary to liver failure, resolved -Direct hyperbilirubinemia: Secondary to cirrhosis will use ursodeoxycholic acid. -Cirrhosis etiology is unknown probability of nonalcoholic steato- hepatitis with some acute hepatitis -Hyperkalemia secondary to potassium sparing diuretic which is being held -Hyponatremia hypervolemic hyponatremia improved with Lasix -Elevated MCV secondary to liver disease. -Coagulopathy secondary to liver disease Hospital course:68-year-old admitted the for [facility], cirrhosis nonalcoholic steato hepatitis is on Lasix improved lactic acid improved potassium level patient is urinating well. Patient will undergo diagnostic and therapeutic paracentesis patient will need referral to liver transplant list. INR is elevated secondary to liver disease his in's 1.5 will order vitamin K. Evaluated by GI, underwent therapeutic and diagnostic paracentesis, tolerated procedure well. Final culture results pending. Discussing option of liver transplant list with GI and patient will proceed with outpatient CT. Cleared by GI for discharge. Patient is being discharged home in stable condition with guarded prognosis. EXAMINATION: GENERAL: The patient is alert and oriented x3, not in any acute distress. CARDIOVASCULAR: S1 and S2 present. No murmurs, rubs, or gallops. PULMONARY: Chest is clear to auscultation, no wheezing or crackles. ABDOMEN: Soft, mildly distended, nontender, positive bowel sounds NEUROLOGICAL: Gross neurological examination did not reveal any focal deficits. The impression and plan of care has been dictated as directed. : I performed a history and examination of this patient, discussed the same with the dictator. I agree with the dictator's note ,documented as a scribe. Any additional findings or plans will be noted. Time taken: 35 minutes Patient Condition at Discharge: Stable Plan - Discharge Summary Discharge Rx Participant: Yes New Discharge Prescriptions: New Pantoprazole Sodium [Protonix] 40 mg PO DAILY #30 tablet.dr Spironolactone [Aldactone] 25 mg PO DAILY #30 tablet Ursodiol [Actigall] 300 mg PO TID-W/MEALS #90 cap Furosemide [Lasix] 40 mg PO BID #60 tablet traMADol HCl [Ultram] 50 mg PO Q6HR PRN 3 Days #12 tab PRN Reason: Pain Discontinued Furosemide [Lasix] 40 mg PO DAILY Spironolactone 100 mg PO DAILY Discharge Medication List Furosemide [Lasix] 40 mg PO BID #60 tablet 04/11/18 [Rx] Pantoprazole Sodium [Protonix] 40 mg PO DAILY #30 tablet. 04/11/18 [Rx] Spironolactone [Aldactone] 25 mg PO DAILY #30 tablet 04/11/18 [Rx] Ursodiol [Actigall] 300 mg PO TID-W/MEALS #90 cap 04/11/18 [Rx] traMADol HCl [Ultram] 50 mg PO Q6HR PRN 3 Days #12 tab 04/11/18 [Rx] Follow up Appointment(s)/Referral(s): Travon Rowan MD [Primary Care Provider] - 04/14/18 9:20 am Margaret Pride MD [STAFF PHYSICIAN] - 04/18/18 4:30 pm Ambulatory/Diagnostic Orders: Complete Blood Count w/diff [LAB.AMB] Time Frame: 3 Days, Location: None Selected Patient Instructions/Handouts: Ascites (DC) Activity/Diet/Wound Care/Special Instructions: Outpatient abdominal CT/assistance with liver transplant list as per GI Case management to verify coverage of actigall Discharge Disposition: HOME SELF-CARE
== END 2018-04-11 17:01 | disposition home or self-care (01) | DRG 432 ==
LOC: EC 11:32 → 4MS4W 15:04
PROVIDERS: ADMIT Internal Medicine; ATTEND Internal Medicine
PROC: 0W9G3ZZ Drainage of Peritoneal Cavity, Percutaneous Approach (ICD-10-PCS; principal; 2018-04-11)
DX: K74.69 Other cirrhosis of liver (principal); K72.00 Acute and subacute hepatic failure without coma; D68.4 Acquired coagulation factor deficiency; E87.1 Hypo-osmolality and hyponatremia; E87.2 Acidosis; R18.8 Other ascites; K75.81 Nonalcoholic steatohepatitis (NASH); E87.5 Hyperkalemia; E87.70 Fluid overload, unspecified; F17.200 Nicotine dependence, unspecified, uncomplicated; K72.10 Chronic hepatic failure without coma; Z87.442 Personal history of urinary calculi; Z79.899 Other long term (current) drug therapy; Z88.1 Allergy status to other antibiotic agents
CPT/HCPCS: 36415; 49083; 71046; 76705; 80053; 80074; 81003; 82042; 82105; 82140; 82550; 82553; 83605; 83880; 84100; 84443; 84484; 85025; 85610; 85730; 87070; 87075; 87205; 88108; 88305; 89050; 93005; 94760; 99285

== ENCOUNTER → 2018-04-14 | Outpatient (CLI) | payer MEDICARE, OTHER ==
[2018-04-14 16:51] LABS: Anisocytosis Slight; HCT 47.1 % (39.0-53.0); HGB 15.2 gm/dL (13.0-17.5); MCH 32.8 pg (25.0-35.0); MCHC 32.2 g/dL (31.0-37.0); MCV 101.9 fL (80.0-100.0); Macrocytosis Moderate; Mean Platelet Volume 8.7; Platelet Count 148 k/uL (150-450); RBC 4.62 m/uL (4.30-5.90); RDW 17.1 % (11.5-15.5); WBC 7.1 k/uL (3.8-10.6)
[2018-04-14 17:08] LABS: Albumin 3.2 g/dL (3.5-5.0); Calcium 9.4 mg/dL (8.4-10.2); Potassium 5.5 mmol/L (3.5-5.1); Total Protein 8.7 g/dL (6.3-8.2)
[2018-04-14 17:30] LABS: Total Bilirubin 16.8 mg/dL (0.2-1.3)
--- NOTE | 2018-04-14 23:51 | CT ---
EXAMINATION TYPE: CT abdomen w con DATE OF EXAM: 04/14/2018 COMPARISON: Limited abdominal ultrasound from 3 days earlier. HISTORY: Hepatic failure, jaundice CT DLP: 846.8 mGycm, Automated Exposure Control for Dose Reduction was Utilized. CONTRAST: CT scan of the abdomen and pelvis is performed with oral and with IV Contrast, patient injected with 100 mL of Isovue 300. FINDINGS: LUNG BASES: No significant abnormality is appreciated. No significant pleural effusions are noted. LIVER/GB: Liver is somewhat small in size with lobulated peripheral nodular contour, findings consist ent with underlying cirrhosis. Surrounding ascites is seen. There is overall heterogeneity present. T here is more suspicious focal low density area which I cannot exclude mass centrally in the liver axi al image 9 measuring 3.5 x 2.9 cm. There is mild left-sided ductal dilatation. There is mild gallblad tamiko wall thickening with small dependent gallstones. No suspicious extrahepatic biliary dilatation is seen. There is poor visualization of patent portal vein with prominent small vessels in the michell he patis, cannot exclude portal vein thrombosis with cavernous transformation. There is recanalized umbi lical vein seen. There are prominent collateral vessels surrounding the distal esophagus or suspected up hill varices. PANCREAS: No significant abnormality is seen. SPLEEN: Spleen is mildly enlarged 13.6 cm axial image 22. ADRENALS: No significant abnormality is seen. KIDNEYS: There is a 4 mm nonobstructing calculus left kidney midpole level coronal image 71. There is symmetric cortical medullary uptake but nonvisualized excretion from both kidneys, no hydronephrosis is noted bilaterally. BOWEL: Oral contrast only reaches mid small bowel loops. Mild wall thickening in small bowel loops is felt present. There is suspected mild wall thickening and colonic loops. Scattered colonic diverticu la are present. LYMPH NODES: No greater than 1cm abdominal lymph nodes are appreciated. OSSEOUS STRUCTURES: No significant abnormality is seen. OTHER: Small to moderate amount of scattered abdominal ascites is seen. There is recanalized umbilica l vein noted.. IMPRESSION: Cirrhosis with portal hypertension. Mild to moderate amount of abdominal ascites. 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 Heterogeneity, cannot exclude central mass or focal HCC, correlate clinically with alpha-fetoprotein levels and degree of clinical suspicion. G allbladder and bowel findings are presumed product of underlying liver disease.
[2018-04-15 04:45] LABS: Hepatitis C IgG Antibody Non-Reactive (Non-Reactive)
== END | disposition home or self-care (01) ==
LOC: RADCTMAIN 16:16
PROVIDERS: ATTEND Internal Medicine Gastroenterology
DX: K74.60 Unspecified cirrhosis of liver (principal); K76.6 Portal hypertension; R18.8 Other ascites
CPT/HCPCS: 86803; 80053; 85027; 87340; 83516; 86038; 74160; 36415; Q9967

== ENCOUNTER 2018-04-19 17:48 | Inpatient (IN) | payer MEDICARE, OTHER ==
[2018-04-19] MEDS ORDERED: SODIUM CHLORIDE 0.9% 1,000 ML IV STA ×2 (18:06)
[2018-04-19] MEDS ORDERED: ONDANSETRON 4 MG/2 ML VIAL IVP STA (18:06)
--- NOTE | 2018-04-19 18:09 | ED ---
General Adult HPI - General Chief complaint: Recheck/Abnormal Lab/Rx Stated complaint: pain all over Time Seen by Provider: 04/19/18 17:58 Source: patient, family, RN notes reviewed Mode of arrival: ambulatory Limitations: no limitations - History of Present Illness Initial comments: This is a 68-year-old male with a recent diagnosed liver mass who has had a recent history of jaundice who is brought in today by his family because of persistent nausea vomiting and generalized weakness decreased oral intake. He still feels nauseated. No diarrhea no blood per rectum no blood in his vomit. No overt chest pain cough fevers chills or sweats. Additionally apparently patient blood pressure is below what it normally runs. Normally runs in the 120s systolic. - Related Data Previous Rx's Medication Instructions Recorded Furosemide [Lasix] 40 mg PO BID #60 tablet 04/11/18 Pantoprazole Sodium [Protonix] 40 mg PO DAILY #30 tablet. 04/11/18 Spironolactone [Aldactone] 25 mg PO DAILY #30 tablet 04/11/18 Ursodiol [Actigall] 300 mg PO TID-W/MEALS #90 cap 04/11/18 traMADol HCl [Ultram] 50 mg PO Q6HR PRN 3 Days #12 tab 04/11/18 Allergies Allergy/AdvReac Type Severity Reaction Status Date / Time vancomycin Allergy Rash/Hives Verified 04/19/18 18:02 Review of Systems ROS Statement: Those systems with pertinent positive or pertinent negative responses have been documented in the HPI. ROS Other: All systems not noted in ROS Statement are negative. 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; C-Diff x1 2014, multiple kidney stones; low platelets, mass to liver History of Any Multi-Drug Resistant Organisms: C-DIFF Date of last positivie culture/infection: 2014 MDRO Source:: Colon Past Surgical History: No Surgical Hx Reported Additional Past Surgical History / Comment(s): Colonoscopy; paracentesis x1 February 2018; ERCP; 2017 platelet transfusion Past Anesthesia/Blood Transfusion Reactions: No Reported Reaction Past Psychological History: No Psychological Hx Reported Smoking Status: Current every day smoker Past Alcohol Use History: None Reported Past Drug Use History: None Reported - Past Family History Mother Family Medical History: Unable to Obtain Additional Family Medical History / Comment(s): Adopted. General Exam - General Exam Comments Initial Comments: This is a well-developed asthenic appearing male who does appear jaundiced Limitations: no limitations General appearance: alert, lethargic Head exam: Present: atraumatic, normocephalic, normal inspection Eye exam: Present: normal appearance, PERRL, EOMI. Absent: scleral icterus, conjunctival injection, periorbital swelling ENT exam: Present: mucous membranes dry Neck exam: Present: normal inspection. Absent: tenderness, meningismus, lymphadenopathy Respiratory exam: Present: normal lung sounds bilaterally. Absent: respiratory distress, wheezes, rales, rhonchi, stridor Cardiovascular Exam: Present: regular rate, normal rhythm, normal heart sounds. Absent: systolic murmur, diastolic murmur, rubs, gallop, clicks GI/Abdominal exam: Present: soft, tenderness (Mild right upper quadrant has palpation no guarding or rebound), normal bowel sounds. Absent: distended, guarding, rebound, rigid Rectal exam: Present: deferred Extremities exam: Present: normal inspection, full ROM, normal capillary refill. Absent: tenderness, pedal edema, joint swelling, calf tenderness Back exam: Present: normal inspection Neurological exam: Present: alert, oriented X3, CN II-XII intact Psychiatric exam: Present: normal affect, normal mood Skin exam: Present: warm, dry, intact, other (Jaundice). Absent: normal color, rash Course Vital Signs 04/19/18 04/19/18 17:50 19:04 Temperature 97.8 F Pulse Rate 91 88 Respiratory 20 20 Rate Blood Pressure 107/71 110/62 O2 Sat by Pulse 97 95 Oximetry EKG Findings - EKG Results: EKG: interpreted by ERMD, sinus rhythm (Normal sinus rhythm of 87. Interval 160 QRS duration 92 QT since QTC 390/[address]-T wave changes) Medical Decision Making - Medical Decision Making I did discuss the findings the patient family members patient states she's feeling somewhat better after the IV patient again he still feels very weak nausea has subsided at this point he will be admitted I did discuss the case with Dr. Plascencia. - Lab Data Result diagrams: 04/19/18 18:10 04/19/18 18:10 Lab Results 04/19/18 04/19/18 04/19/18 Range/Units 18:10 18:10 18:10 WBC 10.0 (3.8-10.6) k/uL RBC 4.92 (4.30-5.90) m/uL Hgb 16.1 (13.0-17.5) gm/dL Hct 49.2 (39.0-53.0) % MCV 99.9 (80.0-100.0) fL MCH 32.7 (25.0-35.0) pg MCHC 32.8 (31.0-37.0) g/dL RDW 17.0 H (11.5-15.5) % Plt Count 122 L (150-450) k/uL Neutrophils % 81 % Lymphocytes % 9 % Monocytes % 6 % Eosinophils % 1 % Basophils % 0 % Neutrophils # 8.1 H (1.3-7.7) k/uL Lymphocytes # 0.9 L (1.0-4.8) k/uL Monocytes # 0.6 (0-1.0) k/uL Eosinophils # 0.1 (0-0.7) k/uL Basophils # 0.0 (0-0.2) k/uL Anisocytosis Slight Macrocytosis Slight Sodium 131 L (137-145) mmol/L Potassium 5.2 H (3.5-5.1) mmol/L Chloride 94 L (98-107) mmol/L Carbon Dioxide 24 (22-30) mmol/L Anion Gap 13 mmol/L BUN 54 H (9-20) mg/dL Creatinine 1.55 H (0.66-1.25) mg/dL Est GFR (CKD-EPI)AfAm 53 (>60 ml/min/1.73 sqM) Est GFR (CKD-EPI)NonAf 46 (>60 ml/min/1.73 sqM) Glucose 143 H (74-99) mg/dL Plasma Lactic Acid Kevon (0.7-2.0) mmol/L Calcium 9.0 (8.4-10.2) mg/dL Magnesium 2.4 H (1.6-2.3) mg/dL Total Bilirubin 18.9 H* (0.2-1.3) mg/dL AST 551 H (17-59) U/L ALT 126 H (21-72) U/L Alkaline Phosphatase 331 H (38-126) U/L Total Creatine Kinase 24 L (55-170) U/L CK-MB (CK-2) 0.7 (0.0-2.4) ng/mL CK-MB (CK-2) Rel Index 2.9 Troponin I 0.014 (0.000-0.034) ng/mL Total Protein 8.3 H (6.3-8.2) g/dL Albumin 3.0 L (3.5-5.0) g/dL Amylase 68 (30-110) U/L Lipase 329 H (23-300) U/L 04/19/18 Range/Units 18:10 WBC (3.8-10.6) k/uL RBC (4.30-5.90) m/uL Hgb (13.0-17.5) gm/dL Hct (39.0-53.0) % MCV (80.0-100.0) fL MCH (25.0-35.0) pg MCHC (31.0-37.0) g/dL RDW (11.5-15.5) % Plt Count (150-450) k/uL Neutrophils % % Lymphocytes % % Monocytes % % Eosinophils % % Basophils % % Neutrophils # (1.3-7.7) k/uL Lymphocytes # (1.0-4.8) k/uL Monocytes # (0-1.0) k/uL Eosinophils # (0-0.7) k/uL Basophils # (0-0.2) k/uL Anisocytosis Macrocytosis Sodium (137-145) mmol/L Potassium (3.5-5.1) mmol/L Chloride (98-107) mmol/L Carbon Dioxide (22-30) mmol/L Anion Gap mmol/L BUN (9-20) mg/dL Creatinine (0.66-1.25) mg/dL Est GFR (CKD-EPI)AfAm (>60 ml/min/1.73 sqM) Est GFR (CKD-EPI)NonAf (>60 ml/min/1.73 sqM) Glucose (74-99) mg/dL Plasma Lactic Acid Kevon 3.5 H* (0.7-2.0) mmol/L Calcium (8.4-10.2) mg/dL Magnesium (1.6-2.3) mg/dL Total Bilirubin (0.2-1.3) mg/dL AST (17-59) U/L ALT (21-72) U/L Alkaline Phosphatase (38-126) U/L Total Creatine Kinase (55-170) U/L CK-MB (CK-2) (0.0-2.4) ng/mL CK-MB (CK-2) Rel Index Troponin I (0.000-0.034) ng/mL Total Protein (6.3-8.2) g/dL Albumin (3.5-5.0) g/dL Amylase (30-110) U/L Lipase (23-300) U/L - Radiology Data Radiology results: report reviewed (I did review the imaging and report no acute findings), image reviewed Disposition Clinical Impression: Cirrhosis of liver, Jaundice, Dehydration, Failure to thrive Disposition: ADMITTED IP TO THIS [facility] Condition: Stable Referrals: Travon Rowan MD [Primary Care Provider] - 1-2 days
[2018-04-19 18:45] LABS: Anisocytosis Slight; Basophils % (A) 0 %; Eosinophils # (A) 0.1 k/uL (0-0.7); Eosinophils % (A) 1 %; HCT 49.2 % (39.0-53.0); HGB 16.1 gm/dL (13.0-17.5); Lymphocytes # (A) 0.9 k/uL (1.0-4.8); Lymphocytes % (A) 9 %; MCH 32.7 pg (25.0-35.0); MCHC 32.8 g/dL (31.0-37.0); MCV 99.9 fL (80.0-100.0); Macrocytosis Slight; Mean Platelet Volume 8.8; Monocytes # (A) 0.6 k/uL (0-1.0); Monocytes % (A) 6 %; Neutrophils # (A) 8.1 k/uL (1.3-7.7); Neutrophils % (A) 81 %; Platelet Count 122 k/uL (150-450); RBC 4.92 m/uL (4.30-5.90)
[2018-04-19 18:52] LABS: Magnesium 2.4 mg/dL (1.6-2.3); Potassium 5.2 mmol/L (3.5-5.1); Total Protein 8.3 g/dL (6.3-8.2)
[2018-04-19] MEDS ORDERED: SODIUM CHLORIDE 0.9% 2,000 ML IV ONE (18:53)
[2018-04-19 19:01] LABS: Total Bilirubin 18.9 mg/dL (0.2-1.3)
--- NOTE | 2018-04-19 19:14 | XR ---
EXAMINATION TYPE: XR KUB 2 views DATE OF EXAM: 04/19/2018 HISTORY: Generalized abdominal pain with weakness and jaundice and dyspnea. History cirrhosis; new li favian mass TECHNIQUE: 2 upright views FINDINGS: The right hemidiaphragm is elevated. There is no pneumoperitoneum. No bowel obstruction. There is a prominent homogeneous added opacity over the entire abdomen and pelvis, obscuring the inte rface between a solid viscera the adjacent adipose planes. This has the appearance of ascites. No acute skeletal findings. IMPRESSION: 1. Ascites. 2. Elevated right hemidiaphragm.
[2018-04-19 19:17] LABS: Creatine Kinase MB 0.7 ng/mL (0.0-2.4); Troponin I 0.014 ng/mL (0.000-0.034)
[2018-04-19] MEDS ORDERED: HYDROmorphone 1 MG/ML 1 ML SYRINGE IVP STA (19:41)
[2018-04-19] MEDS ORDERED: NALOXONE 0.4 MG/ML 1 ML VIAL IV PRN (20:35)
[2018-04-19] MEDS ORDERED: ONDANSETRON 4 MG/2 ML VIAL IVP PRN (20:35)
[2018-04-19] MEDS ORDERED: traMADol 50 MG TAB PO PRN (20:38)
[2018-04-19 22:02] VITALS: BMI 28.4
[2018-04-19] MEDS: SODIUM CHLORIDE 0.9% 1,000 ML IV SCH (22:32)
[2018-04-19] MEDS: FUROSEMIDE 40 MG TAB PO SCH (22:34)
[2018-04-20] MEDS ORDERED: SODIUM CHLORIDE 0.9% 1,000 ML IV SCH (00:15)
[2018-04-20] MEDS: SODIUM CHLORIDE 0.9% 1,000 ML IV SCH ×2 (04:30→16:20)
[2018-04-20] MEDS ORDERED: PANTOPRAZOLE 40 MG TABLET PO SCH (07:30)
[2018-04-20] MEDS: HYDROmorphone 1 MG/ML 1 ML SYRINGE IVP PRN ×3 (08:01→18:03)
[2018-04-20] MEDS: FUROSEMIDE 40 MG TAB PO SCH (08:01)
[2018-04-20] MEDS: URSODIOL 300 MG CAP PO SCH ×3 (08:01→16:44)
[2018-04-20] MEDS ORDERED: SPIRONOLACTONE 25 MG TAB PO SCH (09:00)
[2018-04-20 13:03] VITALS: BP 110/69; PULSE 93; RESP 16; TEMP 97.5
[2018-04-20] MEDS ORDERED: SODIUM CHLORIDE 0.45% 1,000 ML IV SCH (13:15)
--- NOTE | 2018-04-20 13:44 | P.CONS ---
History of Present Illness - Reason for Consult Consult date: 04/20/18 Jaundice liver mass Requesting physician: Benny Plascencia - Chief Complaint Worsening jaundice - History of Present Illness 68-year-old gentleman with a history of nonalcoholic liver cirrhosis presents with worsening jaundice. Total bilirubin 18.9. AST 551. ALT 126. AP 331. Lactic acid 3.5. Sodium 131. Potassium 5.2. BUN 54. Creatinine 1.5. Total bilirubin was 13.2 on 04/09/2018. hepatitis screen nonreactive. INR 1.4 on . He's had a few paracentesis performed recently the last one 04/11/2018 5.3 L removed. Cytology negative. CT abdomen 04/14/2018 reported cirrhosis with portal hypertension. 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 Heterogeneity cannot exclude central mass or focal HCC. AFP 04/10/2018 was 12.0. Review of Systems Constitutional: Denies fever, chills, sweats, weight gain, progressive weight loss. HEENT: Negative for migraines, blurred vision or loss, earaches, drainage, tinnitus, oral mucosal lesions, dysphagia, or odynophagia. Cardiac: Negative for chest pain, arrhythmias, or palpitation. Respiratory: Negative for shortness of breath, hemoptysis, cough, or sputum production. Gastrointestinal: See HPI for pertinent findings. Genitourinary: Negative for hematuria, urgency, frequency, polyuria, dysuria, or penile discharge. Musculoskeletal: Negative for muscle aches, swelling, arthritis, and arthralgias. Neurologic: Negative for stroke or TIA. Endocrine: Negative for thyroid problems. Skin: Negative for rash or itching. 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; C-Diff x1 2014, multiple kidney stones; low platelets, mass to liver History of Any Multi-Drug Resistant Organisms: C-DIFF Year Discovered:: 2015 MDRO Source:: Colon Past Surgical History: No Surgical Hx Reported Additional Past Surgical History / Comment(s): Colonoscopy; paracentesis x2 February and April 09 2018; ERCP; 2017 platelet transfusion Past Anesthesia/Blood Transfusion Reactions: No Reported Reaction Past Psychological History: No Psychological Hx Reported Smoking Status: Former smoker Past Alcohol Use History: None Reported Additional Past Alcohol Use History / Comment(s): Smokes 2 cigars a day for about 10+ years. Last smoked about 1 week ago. Has not drank alcohol since beginning of February 2018, occasional alcohol prior to that. Patient stated he would drink beer or wine. Past Drug Use History: None Reported - Past Family History Mother Family Medical History: Unable to Obtain Additional Family Medical History / Comment(s): Adopted. Daughter(s) Additional Family Medical History / Comment(s): No past medical history. Son(s) Family Medical History: Diabetes Mellitus Additional Family Medical History / Comment(s): Type 2 diabetes, newly diagnosed. Medications and Allergies Home Medications Medication Instructions Recorded Confirmed Type Furosemide [Lasix] 40 mg PO BID #60 tablet 04/11/18 04/19/18 Rx Pantoprazole Sodium [Protonix] 40 mg PO DAILY #30 tablet. 04/11/18 04/19/18 Rx Spironolactone [Aldactone] 25 mg PO DAILY #30 tablet 04/11/18 04/19/18 Rx Ursodiol [Actigall] 300 mg PO TID-W/MEALS #90 cap 04/11/18 04/19/18 Rx traMADol HCl [Ultram] 50 mg PO Q6HR PRN 3 Days #12 tab 04/11/18 04/19/18 Rx Allergies Allergy/AdvReac Type Severity Reaction Status Date / Time vancomycin Allergy Rash/Hives Verified 04/19/18 18:02 Physical Exam Vitals: Vital Signs Temp Pulse Pulse Pulse Resp BP BP 04/20/18 12:20 97.5 F L 93 16 110/69 04/20/18 05:17 97.7 F 90 18 105/66 04/19/18 22:20 96.7 F L 89 18 138/77 04/19/18 21:16 86 20 122/67 04/19/18 20:26 86 20 115/66 04/19/18 19:04 88 20 110/62 04/19/18 17:50 97.8 F 91 20 107/71 Pulse Ox 04/20/18 12:20 98 04/20/18 05:17 94 L 04/19/18 22:20 93 L 04/19/18 21:16 93 L 04/19/18 20:26 93 L 04/19/18 19:04 95 04/19/18 17:50 97 Intake and Output 04/19/18 04/20/18 04/20/18 22:59 06:59 14:59 Intake Total 3600 1160 Balance 3600 1160 Intake: Amount of Fluid Infused ( 3200 ml) Intake, IV Titration 100 800 Amount Sodium Chloride 0.9% 1, 800 000 ml @ 100 mls/hr IV . Q10H EDVIN Rx#:[id number] Sodium Chloride 0.9% 1, 100 000 ml @ 100 mls/hr IV . Q10H STA Rx#:[id number] Oral 300 360 Other: Voiding Method Toilet Toilet # Voids 1 1 Weight 80 kg 80 kg General appearance: The patient is alert, oriented, in no acute distress. Visibly jaundice. Weak appearance. HET: Head is normocephalic and atraumatic. Pupils are equal and reactive. Sclerae icterus Oropharynx is clear without lesions. Neck: Supple without lymphadenopathy. Trachea midline. Heart: S1 S2. Regular rate and rhythm. Lungs: No crackles or wheezes are heard. Abdomen: Soft, nontender, bloated mild ascites with bowel sounds. No peritoneal signs. No palpable organomegaly or masses. Extremities: Normal skin color and turgor. No cyanosis, rash, ulceration, clubbing, or edema. Radial and pedal pulses are 2/4 bilaterally. Neurological: No focal deficits. Strength and sensation are grossly intact. Results CBC & Chem 7: 04/19/18 18:10 04/19/18 18:10 Labs: Abnormal Lab Results - Last 24 Hours (Table) 04/19/18 04/19/18 04/19/18 Range/Units 18:10 18:10 18:10 RDW 17.0 H (11.5-15.5) % Plt Count 122 L (150-450) k/uL Neutrophils # 8.1 H (1.3-7.7) k/uL Lymphocytes # 0.9 L (1.0-4.8) k/uL Sodium 131 L (137-145) mmol/L Potassium 5.2 H (3.5-5.1) mmol/L Chloride 94 L (98-107) mmol/L BUN 54 H (9-20) mg/dL Creatinine 1.55 H (0.66-1.25) mg/dL Glucose 143 H (74-99) mg/dL Plasma Lactic Acid Kevon (0.7-2.0) mmol/L Magnesium 2.4 H (1.6-2.3) mg/dL Total Bilirubin 18.9 H* (0.2-1.3) mg/dL AST 551 H (17-59) U/L ALT 126 H (21-72) U/L Alkaline Phosphatase 331 H (38-126) U/L Ammonia (<30) umol/L Total Creatine Kinase 24 L (55-170) U/L Total Protein 8.3 H (6.3-8.2) g/dL Albumin 3.0 L (3.5-5.0) g/dL Lipase 329 H (23-300) U/L 04/19/18 04/19/18 04/20/18 Range/Units 18:10 22:33 07:47 RDW (11.5-15.5) % Plt Count (150-450) k/uL Neutrophils # (1.3-7.7) k/uL Lymphocytes # (1.0-4.8) k/uL Sodium (137-145) mmol/L Potassium (3.5-5.1) mmol/L Chloride (98-107) mmol/L BUN (9-20) mg/dL Creatinine (0.66-1.25) mg/dL Glucose (74-99) mg/dL Plasma Lactic Acid Kevon 3.5 H* 2.1 H* 2.2 H* (0.7-2.0) mmol/L Magnesium (1.6-2.3) mg/dL Total Bilirubin (0.2-1.3) mg/dL AST (17-59) U/L ALT (21-72) U/L Alkaline Phosphatase (38-126) U/L Ammonia (<30) umol/L Total Creatine Kinase (55-170) U/L Total Protein (6.3-8.2) g/dL Albumin (3.5-5.0) g/dL Lipase (23-300) U/L 04/20/18 04/20/18 Range/Units 11:56 11:56 RDW (11.5-15.5) % Plt Count (150-450) k/uL Neutrophils # (1.3-7.7) k/uL Lymphocytes # (1.0-4.8) k/uL Sodium (137-145) mmol/L Potassium (3.5-5.1) mmol/L Chloride (98-107) mmol/L BUN (9-20) mg/dL Creatinine (0.66-1.25) mg/dL Glucose (74-99) mg/dL Plasma Lactic Acid Kevon 2.2 H* (0.7-2.0) mmol/L Magnesium (1.6-2.3) mg/dL Total Bilirubin (0.2-1.3) mg/dL AST (17-59) U/L ALT (21-72) U/L Alkaline Phosphatase (38-126) U/L Ammonia 53 H (<30) umol/L Total Creatine Kinase (55-170) U/L Total Protein (6.3-8.2) g/dL Albumin (3.5-5.0) g/dL Lipase (23-300) U/L Assessment and Plan (1) Cirrhosis of liver Narrative/Plan: 68-year-old gentleman with a history of nonalcoholic liver cirrhosis possible liver mass per recent CT with mildly elevated alpha-fetoprotein marker 12.0 presents with worsening jaundice consistent with decompensating liver disease. Current Visit: Yes Status: Acute Code(s): K74.60 - UNSPECIFIED CIRRHOSIS OF LIVER SNOMED Code(s): 24277455 (2) Jaundice Current Visit: Yes Status: Acute Code(s): R17 - UNSPECIFIED JAUNDICE SNOMED Code(s): 88048782 (3) Liver failure Current Visit: No Status: Acute Code(s): K72.90 - HEPATIC FAILURE, UNSPECIFIED WITHOUT COMA SNOMED Code(s): 53656904 (4) Ascites Current Visit: Yes Status: Chronic Code(s): R18.8 - OTHER ASCITES SNOMED Code(s): 700166098 (5) Portal hypertension Current Visit: Yes Status: Chronic Code(s): K76.6 - PORTAL HYPERTENSION SNOMED Code(s): 27002791 Plan: 1. Recommend transfer to tertiary center secondary to decompensating liver disease patient and family is agreeable for [facility] system. 2. Continue symptomatic supportive measures. Thank you for this kind referral and the opportunity to participate in the care of your patient. This consultation was discussed with Dr. Meyer. The impression and plan of care have been directed as dictated.
--- NOTE | 2018-04-20 16:27 | HP ---
HISTORY AND PHYSICAL DATE OF ADMISSION: 04/19/2018 DATE OF SERVICE: 04/20/2018 PRESENTING COMPLAINT: Weak, tired, jaundice. HISTORY OF PRESENTING COMPLAINT: This is a very pleasant 68-year-old patient who follows with Dr. Rowan. Patient has a diagnosis of cirrhosis and underwent EGD by Dr. Mago Pride back in December of this year, was found to have esophageal varices and portal gastropathy. Patient is felt to have underlying non-alcoholic steatosis progressing to cirrhosis. The patient lives by himself. The patient has been losing appetite, getting more and more jaundiced, nausea. The patient's daughter is at the bedside. The patient now presents with blood pressure running low. Bilirubin has gone up to 18 from 13 recently. He is also in acute renal failure. Creatinine has gone from 1.09 to 1.55. Admitted for the same. GI Dr. Meyer was consulted. The patient feels really tired and rundown. REVIEW OF SYSTEMS: CONSTITUTIONAL: Loss of appetite, weight loss. HEENT: None. RESPIRATORY: None. CARDIOVASCULAR: None. GASTROINTESTINAL: Some abdominal discomfort. GENITOURINARY: None. MUSCULOSKELETAL: None. DERMATOLOGICAL: None. HEMATOLOGICAL: None. LYMPHATICS: None. PSYCHIATRY: Feels a bit low. NEUROLOGICAL: Generalized weakness. PAST MEDICAL HISTORY: 1. Questionable TIA. 2. Cirrhosis. 3. Brain bleed, stroke in 2016 with no residual effect. 4. Cirrhosis, non-alcoholic. 5. Multiple kidney stones. 6. Possible mass to the liver. 7. Complications of cirrhosis, including esophageal varices, gastropathy, hyperbilirubinemia. PAST SURGICAL HISTORY: 1. Paracentesis x2. 2. ERCP. 3. Platelet transfusion. SOCIAL HISTORY: The patient has smoked cigars on and off for many years. The patient is adopted. Alcohol very occasionally. Lives by himself. FAMILY HISTORY: Patient is adopted. HOME MEDICATIONS: 1. Ultram 50 mg q.6 p.r.n. 2. Actigall 300 mg p.o. t.i.d. 3. Aldactone 25 mg a day. 4. Protonix 40 mg a day. 5. Lasix 40 mg b.i.d. ALLERGY: VANCOMYCIN. PHYSICAL EXAMINATION: VITAL SIGNS ON PRESENTATION: Temperature 97.8, pulse 91, respiration 20, blood pressure 107/71, pulse ox 97% on room air. GENERAL APPEARANCE: Average build. Lying in bed, tired-appearing. EYES: Pupils equal. Conjunctival icterus. HEENT: External appearance of nose and ears normal. Oral cavity dry. NECK: JVD unable to assess. Mass not palpable. RESPIRATORY: Effort normal. LUNGS: Fair air entry. CARDIOVASCULAR: First and second sounds normal. Edema present. ABDOMEN: Slightly distended. Liver and spleen not palpable. Bowel sounds are present. LYMPHATIC: No lymph node palpable in neck or axillae. PSYCHIATRY: Alert and oriented x3. Mood and affect slightly low. NEUROLOGICAL: Pupils equal. Cranial nerves grossly intact. Power and sensation grossly intact. INVESTIGATIONS: White count 10, hemoglobin 16.1, platelets 122. Potassium 5.2, BUN 54, creatinine 1.55. Lactic acid 3.5, bilirubin 18.9, AST 551, ALT 126, albumin 3. Patient's potassium was 4.2 on 04/11/2018. BUN and creatinine were 31 and 1.06. Bilirubin then was 14. Patient's LFTs (AST and ALT) then were 165 and 49; now up to 551 and 126. Recent alpha fetoprotein was 12. Ascitic fluid recently tapped was negative for malignancy. ASSESSMENT: 1. Acute hepatorenal syndrome failure. 2. Hyperbilirubinemia due to cirrhosis. 3. Type 2 lactic acidosis. 4. Hyperkalemia due to renal failure. 5. Hypervolemic hyponatremia. 6. Hypoalbuminemia due to both protein-calorie malnutrition, moderate, and liver failure. 7. Esophageal varices. 8. Portal gastropathy. 9. Hepatic coagulopathy due to cirrhosis. PLAN: Patient's overall worsening liver status slowly decompensating. The patient will gently be hydrated. Consultations are made to Dr. Meyer from GI and Dr. Funk from Nephrology. Prognosis is guarded. I spoke to the patient and daughter at the bedside. I also spoke to Morena from earlier that patient may need a higher level of care, given his failing liver status and now involvement of hepatorenal syndrome. Morena did talk to the family, then I spoke to the patient and daughter. They are both agreeable for transfer to [facility] for a higher level of care and to see a supervising broker. Prognosis is guarded. In the meantime, IV fluids have been started and home medications are resumed. Diuretics have been scaled back. MMODL / IJN: [id number] /
--- NOTE | 2018-04-21 06:02 | DS ---
DISCHARGE SUMMARY DATE OF ADMISSION: 04/19/2018. DATE OF DISCHARGE: 04/20/2018. FINAL DIAGNOSES: 1. Acute hepatorenal syndrome failure. 2. Acute renal failure could be prerenal. 3. Hyperbilirubinemia due to cirrhosis. 4. Type 2 lactic acidosis. 5. Hyperkalemia due to renal failure. 6. Hypervolemic hyponatremia present on admission. 7. Hypoalbuminemia due to poor protein calorie malnutrition, moderate and liver failure. 8. Esophageal varices, chronic. 9. Portal gastropathy due to cirrhosis. 10.Hepatic coagulopathy due to cirrhosis. HOSPITAL COURSE: This is a patient who has a known diagnosis of cirrhosis felt to be secondary to ECHEVARRIA, presented with worsening jaundice, weak, tired, weight loss. Creatinine has gone from 1.09 to 1.55. Bilirubin went up to 18, progressively getting worse. There is a question about a mass on the liver. Did speak to Morena from the GI team. Also spoke to the patient and daughter. They are all agreeable that the patient needs a toxicology supervisor intervention, especially given his overall worsening condition and patient may decompensate at any time. I did speak to accepting physician at [facility], they accepted the patient. On examination, temperature 97.5 pulse 93, respiration 16, blood pressure 110/69, pulse ox 98% on room air. The patient has got icterus. Able answer questions, though slow. INVESTIGATIONS: Ammonia 53. Potassium 5.2. BUN 54, creatinine 1.55. AST 551, ALT 126. Albumin 3.0. CONSULTATION: Dr. Meyer from GI. DISPOSITION: Transfer for higher level of care to [address] Discussion and discharge planning more than 35 minutes. MMODL / IJN: [id number] /
[2018-04-21] MEDS ORDERED: FUROSEMIDE 40 MG TAB PO SCH (09:00)
== END 2018-04-20 18:45 | disposition short-term general hospital (02) | DRG 441 ==
LOC: EC 17:48 → 5MS5E 20:38
PROVIDERS: ADMIT Hospitalist; ATTEND Hospitalist
DX: K76.7 Hepatorenal syndrome (principal); I81 Portal vein thrombosis; K76.6 Portal hypertension; E87.2 Acidosis; E87.1 Hypo-osmolality and hyponatremia; E44.0 Moderate protein-calorie malnutrition; D68.4 Acquired coagulation factor deficiency; R18.8 Other ascites; N17.9 Acute kidney failure, unspecified; I85.10 Secondary esophageal varices without bleeding; K72.90 Hepatic failure, unspecified without coma; I95.9 Hypotension, unspecified; E87.5 Hyperkalemia; E87.70 Fluid overload, unspecified; K74.60 Unspecified cirrhosis of liver; K75.81 Nonalcoholic steatohepatitis (NASH); K31.89 Other diseases of stomach and duodenum; E86.0 Dehydration; R62.7 Adult failure to thrive; R77.2 Abnormality of alphafetoprotein; Z79.899 Other long term (current) drug therapy; Z87.891 Personal history of nicotine dependence; Z71.6 Tobacco abuse counseling; Z86.19 Personal history of other infectious and parasitic diseases; Z87.442 Personal history of urinary calculi; Z86.73 Personal history of transient ischemic attack (TIA), and cerebral infarction without residual deficits; Z88.1 Allergy status to other antibiotic agents; Z83.3 Family history of diabetes mellitus
CPT/HCPCS: 36415; 74018; 80053; 82140; 82150; 82550; 82553; 83605; 83690; 83735; 84484; 85025; 87040; 93005; 96361; 96374; 96375; 99284